=== PATIENT | female | born 1980 | race Caucasian/White ===

== ENCOUNTER 2023-02-14 12:36 | Emergency (ER) | payer BC, SELFPAY ==
[2023-02-14 12:42] VITALS: BP 92/74; PULSE 108; RESP 12; TEMP 36.5; O2SAT 99
--- NOTE | 2023-02-14 13:00 | DI.RAD_ITS ---
Exam(s) XR CHEST 2V PA LATERAL EXAM: XR CHEST 2V PA LATERAL CLINICAL HISTORY: cough TECHNIQUE: 2D digital imaging was performed of the chest. Two images were obtained. PA and lateral views were obtained. COMPARISON: No exams were available for comparison FINDINGS: MEDIASTINUM: Normal. HEART: Normal. PULMONARY VASCULATURE: Normal. LUNGS: The lungs are hyperinflated. No focal infiltrates are seen. PLEURAL SPACE: No pleural effusion or pneumothorax. BONE:Within normal limits for the patient's age. OTHER FINDINGS:Normal. IMPRESSION: No acute pulmonary findings. DATA REPOSITORY: RADIATION DOSE DELIVERED:
[2023-02-14] MEDS: Albuterol/Ipratropium 3 ML UPD VIAL UPD (13:37)
[2023-02-14] MEDS: Normal Saline 1,000 ML 1000 ML IV (13:37)
[2023-02-14 13:38] LABS: Abs Immature Grans 0.01 10^3/uL (0.0-0.06); Absolute Basophil Count 0.01 10^3/uL (0.0-0.2); Absolute Eosinophil Count 0.03 10^3/uL (0.0-0.7); Absolute Lymphocyte Count 0.81 10^3/uL (1.2-3.4); Absolute Monocyte Count 0.64 10^3/uL (0.1-0.8); Absolute Neutrophil Count 3.15 10^3/uL (1.2-6.7); Basophils % 0.2; Eosinophils % 0.6; HGB 14.3 g/dL (11.2-15.7); Immature Grans % 0.2; Lymphocytes % 17.4; MCH 30.1 pg (27.0-33.0); MCV 88 fL (80-95); MPV 9.9 fL (8.0-11.0); Monocytes % 13.8; Neutrophils % 67.8; Platelet Count 181 10^3/uL (130-400); RBC 4.75 10^6/uL (3.93-5.22); RDW 11.6 % (11.7-14.6); RDW-SD 37.3 fL; WBC 4.65 10^3/uL (4.4-10.8)
[2023-02-14 13:51] LABS: ALT 63 U/L (14-59); AST 54 U/L (15-37); Albumin 4.2 g/dL (3.4-5.0); Alkaline Phosphatase 45 U/L (46-116); Anion Gap 9.5 mmol/L (3-11); BUN 6 mg/dL (7-18); Bilirubin, Total 0.6 mg/dL (0.2-1.0); CO2 28.5 mmol/L (21.0-32.0); CREATININE 0.8 mg/dL (0.55-1.02); Calcium 9.6 mg/dL (8.5-10.1); Chloride 99 mmol/L (98-107); Estimated GFR 93.12 (mL/min/1.73m2); Glucose 91 mg/dL (74-106); Potassium 3.8 mmol/L (3.5-5.1); Sodium 137 mmol/L (136-145); Total Protein 8.4 g/dL (6.4-8.2)
[2023-02-14 14:04] LABS: Bilirubin Negative (Negative); Blood Small (Negative); Clarity Clear (Clear); Glucose Negative (Negative); Ketones 40 mg/dL (Negative); Leukocyte Esterase Trace (Negative); Nitrite Negative (Negative); Specific Gravity 1.015 (1.005-1.025)
[2023-02-14 14:10] LABS: Bacteria Few HPF (Negative); C & S Indicated? No/Sq. Contamination; Casts Negative LPF (Negative); Crystals Negative HPF (Negative); Epithelial Cells Many HPF (Negative); Mucus Trace (Negative)
[2023-02-14 14:17] LABS: COVID-19 PCR Negative (Negative); Influenza A PCR Positive (Negative); Influenza B PCR Negative (Negative); RSV PCR Negative (Negative)
[2023-02-14 14:21] LABS: Source Nasopharynx
--- NOTE | 2023-02-14 14:51 | ED.GENADUL_ITS ---
HPI General Stated Complaint: RespSymp Mode of arrival: ambulatory. LYNDON: 3 Date/Time Provider Initiated Documentation: 02/14/23 12:43. Limitations to Documentation: no limitations. Information obtained by: patient and RN notes reviewed. History of Present Illness Cough, malaise moderate day(s) (6) constant No relieving factors improve symptom(s), No exacerbating factors reported other ([id number] meds) Related Data Home Medications Medication Instructions Recorded Confirmed albuterol sulfate 90 mcg/actuation 1 - 2 puff inhalation Q6H PRN 02/14/23 aerosol inhaler shortness of breath or wheezing #6.7 grams benzonatate 200 mg capsule 200 mg PO TID PRN cough #30 caps 02/14/23 Previous Rx's Medication Instructions Recorded albuterol sulfate 90 mcg/actuation 1 - 2 puff inhalation Q6H PRN 02/14/23 aerosol inhaler shortness of breath or wheezing #6.7 grams benzonatate 200 mg capsule 200 mg PO TID PRN cough #30 caps 02/14/23 Review of Systems Constitutional Constitutional: Reports body ache(s), Reports chills, Reports fever(s), Reports headache(s) and Reports malaise Eyes Eyes: Denies eye discharge ENT Ears, Nose, Mouth, and Throat: Reports as per HPI, Denies ear discharge, Denies otalgia, Reports headache(s), Reports nasal congestion, Reports nasal discharge, Denies neck pain, Reports sinus pressure, Reports sore throat and Denies throat swelling Cardiovascular Cardiovascular: Denies chest pain and Denies dyspnea Respiratory Respiratory: Reports cough and Denies dyspnea Musculoskeletal Musculoskeletal: Denies joint swelling and Denies neck pain Integumentary/Breasts Skin/Breast: Denies rash Neurologic Neurologic: Reports headache(s) Allergic/Immunologic Allergic/Immunologic: Denies throat swelling PFSH All Active Problems Influenza A (Acute) Social History Smoking/Tobacco Use Status: Former Tobacco Use Quit Date: 06/09/22 Smoking risk assessment performed?: Yes Alcohol Intake: current Alcohol Intake frequency: a few times a week Alcohol type: beer Substance use type: does not use Housing: house Do you feel safe at home: Yes Do you feel safe in your relationship?: Yes PAWSS Have you Been Recently Intoxicated or Drunk Within the Last 30 days?: No Have you Ever Experienced Previous Episodes of Alcohol Withdrawal?: No Have you ever Experienced Withdrawal Seizures?: No Have you ever Experienced Delirium Tremens(DT)s?: No Have you ever undergone Alcohol Rehabilitation Treatment (i.e, inpt ot outpatient treatment programs)?: No Have you ever Experienced Blackouts?: No Have you ever Combined Alcohol with other Downers within the last 90 days?: No Have you ever Combined Alcohol with any other Substance of Abuse during the last 90 days?: No Positive Blood Alcohol level on Presentation? [PCS.BAL]: No Evidence of Increased Autonomic Activity (i.e. HR>120, tremor, sweating, agitation, nausea)?: No Result: 0 Exam Const General: cooperative, comfortable and no acute distress Orientation: alert and awake [facility] Head: normal to inspection, normocephalic and atraumatic Ears: hearing grossly normal bilaterally and TM's normal bilaterally General nose exam: external nose normal Face and sinus: no erythema Mouth: oral mucosae normal, no drooling, no muffled voice and no trismus Throat: posterior oropharynx normal Neck Neck: normal visual inspection, full ROM, no lymphadenopathy, no meningeal signs, trachea midline and supple Resp Effort & Inspection: normal respiratory effort, able to speak in complete sentences and cough Quality of cough: dry Auscultation: clear to auscultation bilaterally Cardio Rate: tachycardic Rhythm: regular rhythm Heart Sounds: S1 normal, S2 normal, normal S1 and S2, no click, no gallops, no murmurs and no rubs Skin General skin exam: no rashes or lesions noted and dry skin (warm) Neuro General: patient alert, patient awake, patient oriented x3, gait normal and moves all extremities Cognition: normal cognition Speech: speech normal Course Vital Signs Vital signs: Vital Signs Temperature 36.5 C 02/14/23 12:42 Pulse 108 H 02/14/23 12:42 Respiratory Rate 12 02/14/23 12:42 Blood Pressure 92/74 L 02/14/23 12:42 Pulse Oximetry 99 02/14/23 12:42 Temperature 36.5 C 02/14/23 12:42 Temperature Source Temporal Artery Scan 01/06/24 12:42 Pulse 108 H 02/14/23 12:42 Respiratory Rate 12 02/14/23 12:42 Respiratory Effort Normal 02/14/23 13:34 Blood Pressure 92/74 L 02/14/23 12:42 Blood Pressure Position Sitting 02/14/23 12:42 Pulse Oximetry 99 02/14/23 12:42 Oxygen Delivery Method Room Air 02/14/23 12:42 Oxygen Flow Rate 0 02/14/23 12:42 Pain Level 0 02/14/23 12:42 Lab/Test Results Lab/Test Results: Laboratory Tests Range/Units 02/14/23 02/14/23 13:25 13:55 WBC (4.4-10.8) 10^3/uL 4.65 RBC (3.93-5.22) 10^6/uL 4.75 Hgb (11.2-15.7) g/dL 14.3 Hct (36.0-46.0) % 42.0 MCV (80-95) fL 88 MCH (27.0-33.0) pg 30.1 MCHC (32.0-36.0) % 34.0 RDW (11.7-14.6) % 11.6 L Plt Count (130-400) 10^3/uL 181 MPV (8.0-11.0) fL 9.9 Immature Gran % 0.2 Neutrophils % 67.8 Lymphocytes % 17.4 Monocytes % 13.8 Eosinophils % 0.6 Basophils % 0.2 Nucleated RBC % (0.0-0.3) % 0.0 Absolute Neutrophils (1.2-6.7) 10^3/uL 3.15 Absolute Lymphocytes (1.2-3.4) 10^3/uL 0.81 L Absolute Monocytes (0.1-0.8) 10^3/uL 0.64 Absolute Eosinophils (0.0-0.7) 10^3/uL 0.03 Absolute Basophils (0.0-0.2) 10^3/uL 0.01 Sodium (136-145) mmol/L 137 Potassium (3.5-5.1) mmol/L 3.8 Chloride (98-107) mmol/L 99 Carbon Dioxide (21.0-32.0) mmol/L 28.5 Anion Gap (3-11) mmol/L 9.5 BUN (7-18) mg/dL 6 L Creatinine (0.55-1.02) mg/dL 0.8 Est GFR (CKD-EPI 2020) (mL/min/1.73m2) 93.12 Glucose (74-106) mg/dL 91 Calcium (8.5-10.1) mg/dL 9.6 Total Bilirubin (0.2-1.0) mg/dL 0.6 AST (15-37) U/L 54 H ALT (14-59) U/L 63 H Alkaline Phosphatase (46-116) U/L 45 L Total Protein (6.4-8.2) g/dL 8.4 H Albumin (3.4-5.0) g/dL 4.2 Urine Color (Yellow) Yellow Urine Clarity (Clear) Clear Urine pH (5-8) 7.0 Ur Specific [place] (1.005-1.025) 1.015 Urine Protein (Negative) mg/dL Negative Urine Ketones (Negative) mg/dL 40 H Urine Blood (Negative) Small H Urine Nitrite (Negative) Negative Urine Bilirubin (Negative) Negative Urine Urobilinogen (Up to 0.2) mg/dL 2.0 H Ur Leukocyte Esterase (Negative) Trace H Urine RBC (0-2) HPF 5-10 H Urine WBC (0-5) HPF 3-5 Ur Epithelial Cells (Negative) HPF Many Urine Crystals (Negative) HPF Negative Urine Bacteria (Negative) HPF Few Urine Casts (Negative) LPF Negative Urine Mucus (Negative) Trace Ur Culture Indicated? No/Sq. Contamination Urine Glucose (Negative) mg/dL Negative COVID-19 Source Nasopharynx SARS-CoV-2 (PCR) (Negative) Negative Influenza Type A (PCR) (Negative) Positive A Influenza Type B (PCR) (Negative) Negative RSV (PCR) (Negative) Negative POC- Test(urine) Negative Medical Decision Making Patient presenting to the emergency department for chief complaint of cold symptoms. Patient started with symptoms on Thursday that started with mild respiratory symptoms but have progressively gotten worse with some productive sputum mostly in the morning when she wakes up. Today she did develop diarrhea and has had multiple episodes since. Patient has history of pneumonia and is a former smoker. Review of vital signs show slightly low blood pressure 92/74 which she states that is her normal, she is slightly tachycardic at 108, exam otherwise shows persistent dry cough with clear lung sounds, normal HEENT exam and no lymphadenopathy. She is acutely ill in appearance but nontoxic. Will plan on checking labs, giving IV fluids, and chest x-ray. Review of patient's labs show CBC with slightly low lymphocytes otherwise nondiagnostic CBC, CMP does show a transaminase with normal bilirubin, urinalysis does show some ketones and blood otherwise appears to be a contaminated specimen. Patient was positive for influenza A. And chest x-ray showed no consolidation or acute findings to suggest pneumonia. 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 Discussed conservative management, use of Tessalon Perles and albuterol inhaler, and along with return and follow-up precautions. Given duration of symptoms I do not feel that antivirals would be beneficial but did discuss this option with patient. After discussion of diagnosis and plan of care patient has no further needs, questions, or concerns and states clear understanding to return to the emergency department for any worsening symptoms. This documentation was generated using [employer] system, please disregard any oddities of phrase or misspellings. Imaging Data Radiologic Study: Attestation: I personally reviewed and interpreted this imaging study as follows: Imaging: X-Ray Radiologist's impression: Exam(s) PROCEDURE INFORMATION: Exam: XR Chest Exam date and time: 02/14/2023 2:02 PM Age: 42 years old Clinical indication: Cough TECHNIQUE: Imaging protocol: Radiologic exam of the chest. Views: 2 views. COMPARISON: No relevant prior studies available. FINDINGS: Lungs: Unremarkable. No consolidation. Pleural spaces: Unremarkable. No pleural effusion. No pneumothorax. Heart/Mediastinum: Unremarkable. No cardiomegaly. Bones/joints: Unremarkable. IMPRESSION: No acute findings. Dictated and Authenticated by: Sunny Qiules MD. Lab Data Lab results reviewed: Yes I reviewed the patient's lab results. Quality:SDOH Health Related Social Needs: No Data to Display Discharge Plan Disposition Patient Disposition: Home Discharge Details Clinical Impression: Influenza A Primary Care Provider: Unknown,Unknown ED Provider: Kieran Gaitan Home Meds and New Rx's Prescriptions: New benzonatate 200 mg capsule 200 mg PO TID PRN (Reason: cough) Qty: 30 0RF albuterol sulfate 90 mcg/actuation HFA aerosol inhaler 1 - 2 puff inhalation Q6H PRN (Reason: shortness of breath or wheezing) Qty: 6.7 0RF Discharge Instructions Instructions: Influenza (ED) Additional Instructions: You may continue to take [id number]-[id number] medication as needed and stay well- hydrated and get plenty of rest during viral illness. Please follow-up with your primary care provider if not improving in the next week otherwise return to the emergency department for any new or significant worsening of your symptoms. Stand Alone Forms: Work Release Referrals: Primary Care Provider [Outside] - 1 week (If not improving) Discharge Data Discharge Date/Time-TO BE ENTERED AT DEPARTURE: 02/14/23 15:33
--- NOTE | 2023-02-14 14:57 | DI.VRAD_ITS ---
PROCEDURE INFORMATION: Exam: XR Chest Exam date and time: 02/14/2023 2:02 PM Age: 42 years old Clinical indication: Cough TECHNIQUE: Imaging protocol: Radiologic exam of the chest. Views: 2 views. COMPARISON: No relevant prior studies available. FINDINGS: Lungs: Unremarkable. No consolidation. Pleural spaces: Unremarkable. No pleural effusion. No pneumothorax. Heart/Mediastinum: Unremarkable. No cardiomegaly. Bones/joints: Unremarkable. IMPRESSION: No acute findings. Dictated and Authenticated by: Sunny Quiles MD. Ordering:HYACINTH Alcaraz MD
[2023-02-14 15:25] VITALS: BP 98/72; PULSE 95; RESP 12; TEMP 36.8; O2SAT 99
[2023-02-14 15:33] VITALS: BP 98/72; PULSE 95; RESP 12; TEMP 36.8; O2SAT 99
== END 2023-02-14 15:33 | disposition home or self-care (01) ==
PROVIDERS: Emergency Provider Nurse Practitioner Family
DX: R07.0 Pain in throat; R53.1 Weakness; Z87.01 Personal history of pneumonia (recurrent); R19.7 Diarrhea, unspecified; J39.9 Disease of upper respiratory tract, unspecified
CPT/HCPCS: 80053; 87637; 94640; 96360; 96361; 99284; 71046; 81003; 81015; 85025; 99283; J7620

== ENCOUNTER → 2024-12-20 00:28 | Outpatient (CLI) | payer SELFPAY ==
--- NOTE | 2024-12-20 | DI.MAMMO_ITS ---
Exam(s) MAMMO SCREENING EXAM: MAMMO SCREENING CLINICAL HISTORY: SCREENING, Z12.31 TECHNIQUE: Bilateral full field digital CC and MLO mammographic images were obtained with 3D tomosynthesis and utilizing computer aided detection (CAD). COMPARISON: There are no priors for comparison. FINDINGS: Masses/Architectural Distortion: No suspicious masses or areas of architectural distortion are present. Microcalcifications: No suspicious pleomorphic-type are seen. Skin Thickening/Nipple Retraction: None. IMPRESSION: 1. There are no areas to suggest malignancy at this time. 2. Unless there is more urgent need, screening mammography is recommended, as per [employer] guidelines. BI-RADS Category 1 - Negative Breast Density - Category C - The breast are heterogeneously dense, which may obscure small masses. Breast density Category C or D implies that the patient has dense breast tissue. Dense breast tissue can make it harder to find cancer on a mammogram. Dense breast tissue is also associated with an increased risk of breast cancer. This information about the result of the mammogram report was provided to the patient to raise their awareness. Use this report when you speak with the patient about their risks for breast cancer, which includes their family history. At that time, you may recommend additional screening tests (Ultrasound or MRI) as these tests may add significant information. A negative radiographic report should not delay biopsy if a dominant or clinically suspicious mass is present. Up to ten percent of cancers are not identified on mammography. A negative report may reinforce clinical impression. Adenosis and dense breasts may obscure an underlying neoplasm. False positive reports average 6 to 10%. Patient will receive a letter notifying them of these results.
== END ==
PROVIDERS: PCP Nurse Practitioner Family; Visit Provider Nurse Practitioner Family
DX: Z12.31 Encounter for screening mammogram for malignant neoplasm of breast (principal)
CPT/HCPCS: 77063; 77067